=== PATIENT | male | born 1950 | race Caucasian/White ===

== ENCOUNTER → 2016-12-28 | Outpatient (CLI) | payer MEDICAID ==
[~2016-12-28] MED LIST: IOPAMIDOL (ISOVUE-300) 100 ML BTL IV ONE
== END ==
LOC: FIMAGING 12:33
PROVIDERS: ATTEND Internal Medicine
DX: N28.1 Cyst of kidney, acquired (principal); R91.8 Other nonspecific abnormal finding of lung field; M51.36 Other intervertebral disc degeneration, lumbar region; M47.897 Other spondylosis, lumbosacral region
CPT/HCPCS: Q9967

== ENCOUNTER 2017-03-16 08:59 | Emergency (ER) | payer MEDICAID ==
--- NOTE | 2017-03-16 10:46 | EDPHY ---
H & P Stated Complaint: fell last evening impacting l knee - Personal History Current Tetanus/Diphtheria Vaccine: Yes - Medical/Surgical History Hx Asthma: No Hx Chronic Respiratory Disease: No Hx Diabetes: No Hx Cardiac Disease: No Hx Renal Disease: No Hx Cirrhosis: No Hx Alcoholism: No Hx HIV/AIDS: No Hx Splenectomy or Spleen Trauma: No Other PMH: psh- dental implants - Social History Smoking Status: Former smoker HPI/ROS: Chief complaint: Left knee injury History of present illness: This is a 66-year-old male who presents to the emergency department for left knee injury. Last night patient tripped and fell onto the inner aspect of the knee. Since then he has had worsening pain, swelling and bruising to the region. It is making it difficult to ambulate. He denies associated signs or symptoms including no open wounds, no abnormal coolness or paresthesias in the leg, no other trauma reported. (Dariel Medina) - Physical Exam Exam: General: Alert, nontoxic Skin: Contusion to the medial aspect of the left knee, no open wounds. Musculoskeletal: The medial aspect of the left knee is tender to palpation. There is some medial joint line tenderness. The rest of the knee is nontender. He is able to flex and extends it although it causes discomfort. The rest the left lower extremity is unremarkable. Vascular: DP and PT pulses 2+. Neurologic: Sensation intact throughout the left lower extremity. (Dariel Medina) Constitutional: Initial Vital Signs Temperature (C) 36.6 C 03/16/17 09:03 Heart Rate 67 03/16/17 09:03 Respiratory Rate 18 03/16/17 09:03 Blood Pressure 130/67 H 03/16/17 09:03 O2 Sat (%) 97 03/16/17 09:03 O2 Delivery Mode Room Air Allergies/Adverse Reactions: No Known Allergies Allergy (Verified 03/16/17 09:03) Home Medications: Medication Instructions Recorded Hydrocodone/APAP 5/325 [[facility] 1 tab PO Q6H #5 tab 03/16/17 5/325 (*)] Medical Decision Making - Diagnostics Imaging: I viewed and interpreted images myself Procedures: Procedure: Splint placement. A knee immobilizing Velcro splint was applied. After application of the splint I returned and re-examined the patient. The splint was adequately immobilizing the joint and distal to the splint the patient's circulation and sensation was intact. Patient was given crutches with instructions. (Dariel Medina) ED Course/Re-evaluation: Patient seen under the supervision of my secondary supervising physician Dr. Tata Chaidez. Patient presents to the emergency department for left knee injury. The left lower extremity is neurovascularly intact. X-rays show medial soft tissue swelling but are otherwise unremarkable. Patient is placed in a Velcro knee immobilizer and given crutches. Home care is discussed including pain management. He is referred to Orthopedics for further evaluation and care. Return precautions are given. The patient voiced understanding and agreement with plan. (Dariel Medina) The patient was evaluated and managed by the physician prosthetics assistant. I have reviewed this chart and I agree with the findings and plan of care as documented , as indicated by my signature. I am the secondary supervising physician. ( Tata Chaidez) Differential Diagnosis: Included but not limited to contusion, sprain or strain, cartilaginous injury, bony fracture, joint dislocation (Dariel Medina) Departure - Departure Disposition: Home, Routine, Self-Care Clinical Impression: Contusion, knee Condition: Good Instructions: Contusion in Adults (ED) Additional Instructions: Follow-up with orthopedics for recheck Rest the injury Ice, 20 minutes on, 3 times daily for the next 3 days In regards to pain control see the following: Use ibuprofen [600] mg [3] times a day for the next 2-3 days for pain In addition You have been prescribed [[facility]] for pain. [[facility]] contains Tylenol, do not take extra Tylenol/acetaminophen/Apap with it. It is sedating. If symptoms worsen or new symptoms develop return to the emergency room for recheck Referrals: Hermilo Fernández MD [Primary Care Provider] - As per Instructions Sheldon Angeles MD [Medical Doctor] - As per Instructions Prescriptions: Hydrocodone/APAP 5/325 [[facility] 5/325 (*)] 1 tab PO Q6H #5 tab
[2017-03-16 11:04] VITALS: BP 139/78; PULSE 65; RESP 15; TEMP 98.8; O2SAT 95
== END 2017-03-16 11:04 | disposition home or self-care (01) ==
DX: S80.02XA Contusion of left knee, initial encounter (principal); Z87.891 Personal history of nicotine dependence; W19.XXXA Unspecified fall, initial encounter
CPT/HCPCS: L1830

== ENCOUNTER → 2017-07-05 | Outpatient (CLI) | payer OTHER, MEDICAID ==
[~2017-07-05] MED LIST changes: -IOPAMIDOL (ISOVUE-300) 100 ML BTL IV ONE; +IOPAMIDOL (ISOVUE-300) 100 ML BTL ONE
== END ==
LOC: FIMAGING 10:07
PROVIDERS: ATTEND Internal Medicine
DX: N28.1 Cyst of kidney, acquired (principal); K76.89 Other specified diseases of liver; D18.03 Hemangioma of intra-abdominal structures; M51.36 Other intervertebral disc degeneration, lumbar region
CPT/HCPCS: 74177; Q9967

== ENCOUNTER 2017-10-06 09:24 | Emergency (ER) | payer MEDICAID, OTHER ==
[2017-10-06 09:30] VITALS: BP 142/75; PULSE 82; RESP 16; TEMP 97.5; O2SAT 97
--- NOTE | 2017-10-06 09:40 | EDPHY ---
H & P Time Seen by Provider: 10/06/17 09:32 HPI/ROS: CHIEF COMPLAINT: Acute left knee pain HISTORY OF PRESENT ILLNESS: 67-year-old male arrives via private vehicle, ambulatory, stating that when he was shoveling snow this morning he twisted and felt something pop on the medial aspect of the left knee. Complaining of pain at same location. Able bear weight. No direct trauma or fall. PHYSICAL EXAM (Prior to examination, patient consented to physical exam, hands were washed and my usual and customary physical exam procedures followed) 1) GENERAL: Well-developed, well-nourished, alert and oriented. Appears to be in no acute distress. 2) HEAD: Normocephalic 3) HEENT: Pupils equal, round, reactive to light bilaterally. 4) LUNGS: Breathing comfortably. 5) MUSCULOSKELETAL: Exam of the left knee shows normal coloration normal temperature. Mild tenderness to palpation medial aspect of the left knee . Compartments are soft. 6) SKIN: Intact 7) VASCULAR: DP,PT pulses and cap refill present and brisk distally DIFFERENTIAL DIAGNOSIS: in no particular order including but not limited to fracture, sprain, compartment syndrome, septic arthritis, DVT MEDICAL DECISION MAKING I recommended x-ray of the left knee. He declines this. Feels comfortable ambulating. He requested analgesia. At this time I do not think that emergent MRI is currently indicated. However, I have recommended follow-up with Orthopedic surgery and provided this referral information. Informed the patient that outpatient MRI may be indicated. Doubt septic arthritis. Doubt compartment syndrome. Doubt DVT. Smoking Status: Former smoker Constitutional: Initial Vital Signs Temperature (C) 36.4 C 10/06/17 09:28 Heart Rate 82 10/06/17 09:28 Respiratory Rate 16 10/06/17 09:28 Blood Pressure 142/75 H 10/06/17 09:28 O2 Sat (%) 97 10/06/17 09:28 O2 Delivery Mode Room Air Allergies/Adverse Reactions: No Known Allergies Allergy (Verified 10/06/17 09:27) Home Medications: Medication Instructions Recorded Veda 10/06/17 Hydrocodone/APAP 5/325 [[facility] 1 tab PO Q6 PRN #7 tab 10/06/17 5/325 (RX)] MDM/Departure - Depart Disposition: Home, Routine, Self-Care Clinical Impression: Left knee sprain Qualifiers: Encounter type: initial encounter Involved ligament of knee: unspecified ligament Qualified Code(s): S83.92XA - Sprain of unspecified site of left knee, initial encounter Condition: Good Instructions: Knee Sprain (ED) Additional Instructions: Return to the ER immediately if you experience discoloration, have worsening pain, numbness, tingling, or any other symptoms that concern you. If you received x-rays in the emergency department today, be advised, that ligamentous , tendon, muscular, and other non-bony injury cannot be fully ruled out. Try to keep your affected extremity elevated above the level of your chest, and keep cold packs on the affected area, for the next 48 hours. Prescriptions: Hydrocodone/APAP 5/325 [[facility] 5/325 (RX)] 1 tab PO Q6 PRN #7 tab PRN Reason: Pain, Severe Referrals: Shad Borden MD [Medical Doctor] - 5-7 days, call for appt.
== END 2017-10-06 09:46 | disposition home or self-care (01) ==
DX: S83.92XA Sprain of unspecified site of left knee, initial encounter (principal); Z87.891 Personal history of nicotine dependence; X58.XXXA Exposure to other specified factors, initial encounter; Y99.8 Other external cause status; Y93.H1 Activity, digging, shoveling and raking

== ENCOUNTER → 2018-01-28 | Outpatient (CLI) | payer OTHER ==
[~2018-01-28] MED LIST changes: +GADOBUTROL 10 ML VIAL IVP ONE; -IOPAMIDOL (ISOVUE-300) 100 ML BTL ONE
== END ==
LOC: FIMAGING 08:40
PROVIDERS: ATTEND Orthopaedic Surgery Sports Medicine
DX: M25.551 Pain in right hip (principal); M25.561 Pain in right knee; M25.851 Other specified joint disorders, right hip; M76.01 Gluteal tendinitis, right hip; M85.9 Disorder of bone density and structure, unspecified; M22.41 Chondromalacia patellae, right knee; M23.221 Derangement of posterior horn of medial meniscus due to old tear or injury, right knee; M23.241 Derangement of anterior horn of lateral meniscus due to old tear or injury, right knee; M76.891 Other specified enthesopathies of right lower limb, excluding foot
CPT/HCPCS: 73721; 73723; A9585

== ENCOUNTER → 2018-05-09 | Outpatient (CLI) | payer OTHER | LOC: FIMAGING 09:10 | PROVIDERS: ATTEND Orthopaedic Surgery | DX: Z01.818 Encounter for other preprocedural examination (principal); M17.11 Unilateral primary osteoarthritis, right knee ==